=== PATIENT | female | born 1945 | race Caucasian/White ===

== ENCOUNTER → 2016-10-05 | Outpatient (CLI) | payer MEDICARE ==
[~2016-10-05] MED LIST: ACETAMINOPHEN-H1 TA2 PO; AMLODIPINE BES10 MG PO; APRESOLINE 10MG10 MG PO; ASPIR-LOW81 MG PO; ATORVASTATIN CA40 MG PO; B12 INJ.,1000 MCG/M IM; BISOPROLOL FUMA10 MG PO; CLOPIDOGREL75 MG PO; FENOFIBRATE134 M1 PO; FERROUS SULFAT325 M2 PO; FUROSEMIDE 40MG40 M1 PO; GLIMEPIRIDE4 MG PO; HYDRALAZINE10 M1 PO; HYDROCODONE BIT PO; INSULIN GL100 UNITS1 SC; JANUVIA100 MG PO; JANUVIA50 MG PO; LATISSE5 ML TP; LEVOTHYROXIN0.088 MG PO; LEVOTHYROXIN0.125 M1 PO; LISINOPRIL20 MG PO; LOFIBRA54 MG PO; LUMIGAN 5 ML5 M1 OP; METOPROLOL 25 M25 MG PO; NITROGLYCERIN0.4 MG SL; NITROSTAT0.3 MG SL; OMEPRAZOLE40 MG PO; OXYBUTYNIN5 MG PO; PREDNISONE 20MG20 MG PO; SYMBICORT1 AE1 IH; TRICOR 145 MG145 MG PO; XARELTO15 MG PO; ZITHROMAX Z-PA250 M2 PO
--- NOTE | 2016-10-05 10:49 | CARDIOVASCULAR REPORT ---
"Cerebrovascular Exam Indications: 785.9 Bruit. IMPRESSIONS 1. The bilateral vertebral arteries are patent with normal antegrade flow. 2. Study suggests 50-69% stenosis involving the left internal carotid artery, lower end of scale. 3. Study suggests 20-49% stenosis involving the right internal carotid artery. 4. TDE due to short thick neck. Carotid duplex study. Complete study and Doppler flow study including spectral analysis, color and levy scale imaging. Height: Height: 152.4cm. Height: 60in. Weight: Weight: 112kg. Weight: 246.5lb. Body mass index: BMI: 48.2kg/m^2. Body surface area: BSA: 2.25m^2. Location: Vascular laboratory. Patient status: Outpatient. Tables: Arterial flow: + +--------+--------+ |Location |V sys |V ed | + +--------+--------+ |Right CCA - proximal|102cm/s |14.9cm/s| + +--------+--------+ |Right CCA - distal |85.2cm/s|13.3cm/s| + +--------+--------+ |Right ECA |106cm/s |--------| + +--------+--------+ |Right ICA - proximal|122cm/s |26cm/s | + +--------+--------+ |Right ICA - mid |94.8cm/s|19.7cm/s| + +--------+--------+ |Right ICA - distal |105cm/s |23.2cm/s| + +--------+--------+ |Right vertebral |59.4cm/s|--------| + +--------+--------+ |Left CCA - proximal |62.8cm/s|8cm/s | + +--------+--------+ |Left CCA - distal |49.8cm/s|10.6cm/s| + +--------+--------+ |Left ECA |84.4cm/s|--------| + +--------+--------+ |Left ICA - proximal |141cm/s |16.5cm/s| + +--------+--------+ |Left ICA - mid |119cm/s |16.5cm/s| + +--------+--------+ |Left ICA - distal |130cm/s |17.3cm/s| + +--------+--------+ |Left vertebral |90.1cm/s|--------| + +--------+--------+ Velocity ratios: + + + + + + | |Right, V sys|Right, V ed|Left, V sys|Left, V ed| + + + + + + |Max ICA/dist CCA|1.43 |1.95 |2.83 |1.63 | + + + + + + (Report amended ) Electronically signed by: Ruddy Owen [id number]"
== END ==
LOC: RT 07:33
DX: R09.89 Other specified symptoms and signs involving the circulatory and respiratory systems (principal); I48.91 Unspecified atrial fibrillation; I25.10 Atherosclerotic heart disease of native coronary artery without angina pectoris; I11.9 Hypertensive heart disease without heart failure; E11.9 Type 2 diabetes mellitus without complications; D64.9 Anemia, unspecified

== ENCOUNTER → 2017-03-21 | Outpatient (CLI) | payer MEDICARE ==
[~2017-03-21] MED LIST changes: +CARVEDILOL 1212.5 MG PO; +VITAMIN B-650 MG PO; +VITAMIN D1000 IU PO
[2017-03-21 13:38] LABS: HEMOGLOBIN 10.8 g/dL (12.2-16.2); LYMPH # 1.2 K/mm3 (0.7-4.5); LYMPH % 23.6 % (10-50.0)
[2017-03-21 13:54] LABS: BUN 28 mg/dL (7-18)
[2017-03-21 13:58] LABS: GFR (ESTIMATED) 49 ML/MIN (59-)
== END ==
LOC: CARL-LAB 08:09
PROVIDERS: Internal Medicine Adolescent Medicine
DX: E11.9 Type 2 diabetes mellitus without complications (principal); E03.9 Hypothyroidism, unspecified; D64.9 Anemia, unspecified

== ENCOUNTER → 2017-06-03 | Outpatient (CLI) | payer MEDICARE ==
[~2017-06-03] MED LIST changes: +LISINOPRIL 5MG T5 MG PO
[2017-06-03 13:30] LABS: LYMPH # 1.3 K/mm3 (0.7-4.5); LYMPH % 33.4 % (10-50.0)
[2017-06-03 14:03] LABS: BUN 38 mg/dL (7-18)
[2017-06-03 14:18] LABS: GFR (ESTIMATED) 45 ML/MIN (59-)
== END ==
LOC: CARL-LAB 08:21
PROVIDERS: Internal Medicine
DX: D46.9 Myelodysplastic syndrome, unspecified (principal); I10 Essential (primary) hypertension; I25.10 Atherosclerotic heart disease of native coronary artery without angina pectoris

== ENCOUNTER → 2017-06-24 | Outpatient (CLI) | payer MEDICARE ==
--- NOTE | 2017-06-24 16:50 | RADIOLOGY REPORT PS360 ---
CHEST(2 VIEWS-NOT PORTABLE) HISTORY: Shortness of breath, heart disease COPD ORDERING PHYSICIAN: Bryson Ames MD PATIENT AGE: 71 years COMPARISON: 06/26/2016 FINDINGS: There is mild cardiomegaly without failure. No lobar consolidation or collapse. No effusions. Coronary artery calcifications are present with coronary artery stents IMPRESSION: Cardiomegaly, coronary artery disease. No change
== END ==
LOC: RAD 14:37
DX: J44.1 Chronic obstructive pulmonary disease with (acute) exacerbation (principal)